=== PATIENT | female | born 1990 | race Hispanic/Latino ===

== ENCOUNTER 2017-05-13 04:09 | Emergency (ER) | payer OTHER ==
[~2017-05-13] VITALS: Ht 167.6 cm; Wt 77.1 kg
[~2017-05-13 04:09] MED LIST: LEVAQUIN500 MG PO
[2017-05-13] MEDS ORDERED: ONDANSETRON HCL INJ 2 MG/ML VIAL IV STA (04:26)
[2017-05-13] MEDS ORDERED: PANTOPRAZOLE 40 MG 10ML VIAL IV STA (04:26)
[2017-05-13] MEDS ORDERED: SODIUM CHLORIDE 0.9% 1000ML 1,000 ML IV ONE (04:30)
[2017-05-13] MEDS ORDERED: DICYCLOMINE HCL 20 MG/2 ML VIAL IM ONE (04:30)
[2017-05-13 04:42] LABS: BASOPHILS % 0.4 % (0.0-1.0); EOSINOPHILS # (AUTO) 0.2 (0.0-0.4); HEMATOCRIT 38.8 % (34.2-44.1); HEMOGLOBIN 13.1 g/dL (12.0-16.0); LYMPHOCYTES # (AUTO) 2.6 (1.0-3.2); LYMPHOCYTES % 26.2 % (18.0-39.1); MEAN CORPUSCULAR HEMOGLOBIN 27.2 pg (28-32); MEAN CORPUSCULAR HGB CONC 33.8 g/dL (31-35); MEAN CORPUSCULAR VOLUME 80.7 fL (81-99); MONOCYTES # (AUTO) 0.5 (0.2-0.8); NEUTROPHILS # (AUTO) 6.7 (2.1-6.9); NEUTROPHILS % 66.2 % (38.7-80.0); PLATELET COUNT 343 x10e3/uL (140-360); RED BLOOD COUNT 4.81 x10e6/uL (3.6-5.1); RED CELL DISTRIBUTION WIDTH 12.9 % (11.7-14.4)
[2017-05-13 05:02] LABS: ALANINE AMINOTRANSFERASE 28 IU/L (0-55); ALBUMIN 4.1 g/dL (3.5-5.0); ALBUMIN/GLOBULIN RATIO 1.1 (0.8-2.0); ALKALINE PHOSPHATASE 94 IU/L (40-150); AMYLASE 44 U/L (25-125); ANION GAP 13.8 mmol/L (8-16); BLOOD UREA NITROGEN 14 mg/dL (7-26); BUN/CREATININE RATIO 18 (6-25); CALCIUM 9.3 mg/dL (8.4-10.2); CARBON DIOXIDE 25 mmol/L (22-29); CHLORIDE 106 mmol/L (98-107); CREATININE, SERUM 0.76 mg/dL (0.57-1.11); EST GLOMERULAR FILTRATION RATE > 60 ML/MIN (60-); GLUCOSE 114 mg/dL (74-118); LIPASE 25 U/L (8-78); POTASSIUM 3.8 mmol/L (3.5-5.1); SODIUM 141 mmol/L (136-145)
--- NOTE | 2017-05-13 05:30 | Diagnostic Imaging Report ---
CHEST SINGLE (PORTABLE), 05/13/2017 4:26 AM Technique: CHEST SINGLE (PORTABLE) Comparison: 04/25/2017. Clinical history: Shortness of breath Findings: Unremarkable appearance of the heart, mediastinum, lungs and pleural spaces. Impression: 1. Lines/Tubes: None 2. No acute abnormality. Signed by: Dr Colette Christian MD on 05/13/2017 5:26 AM
--- NOTE | 2017-05-13 06:39 | Diagnostic Imaging Report ---
EXAM: US GALLBLADDER DATE: 05/13/2017 12:00 AM INDICATION: Right upper quadrant pain, COMPARISON: None TECHNIQUE: Transverse and longitudinal jimenez scale and color doppler sonographic images of the upper abdomen were obtained. FINDINGS: LIVER 16.3 cm in the right midclavicular line. Slightly increased echogenicity, normal contour, no masses. GALLBLADDER Multiple mobile gallstones with gallbladder wall measuring 0.4 cm. No pericholecystic fluid. Negative sonographic Elena's sign. BILE DUCTS No intra nor extra-hepatic biliary dilation. Common bile duct measures 0.4 cm PANCREAS: Not well seen due to bowel gas. RIGHT KIDNEY: 10.1 cm Echogenicity: Normal Collecting System: No hydronephrosis Stones: None Cyst/Mass: None VESSELS: Aorta: Visualized portions are within normal size limits Inferior Vena Cava: Visualized portions are normal Main Portal Vein: 0.9 cm, normal size with hepatopetal flow. FREE FLUID: None IMPRESSION: 1. Cholelithiasis with mild gallbladder wall thickening, but no pericholecystic fluid or Elena's sign. Findings are technically indeterminate but can be seen with early acute cholecystitis in the proper clinical context. Consider HIDA for confirmation. 2. Possible hepatic steatosis. Signed by: Dr Colette Christian MD on 05/13/2017 6:36 AM
[2017-05-13] MEDS ORDERED: MORPHINE SULFATE 2 MG/ML SYR IV STA (06:50)
[2017-05-13 06:52] LABS: BILIRUBIN,URINE NEGATIVE (NEGATIVE); KETONES,URINE NEGATIVE (NEGATIVE); LEUKOCYTE ESTERASE ,URINE NEGATIVE (NEGATIVE); NITRITE,URINE NEGATIVE (NEGATIVE); PROTEIN,URINE DIPSTICK NEGATIVE (NEGATIVE); URINE UROBILINOGEN 0.2 mg/dL (0.2 - 1)
[2017-05-13 06:53] LABS: CLARITY,URINE CLEAR (CLEAR); COLOR,URINE YELLOW (YELLOW)
[2017-05-13 07:08] LABS: BACTERIA,URINE RARE /HPF; EPITHELIAL CELLS,URINE FEW /LPF; RBC,URINE 0-5 /HPF (0-5); WBC,URINE (MAN) 0-5 /HPF (0-5)
== END 2017-05-13 08:15 | disposition home or self-care (01) ==
LOC: ER 04:09
DX: R10.11 Right upper quadrant pain (principal); R11.0 Nausea; K80.70 Calculus of gallbladder and bile duct without cholecystitis without obstruction
CPT/HCPCS: 36415; 71010; 76705; 80053; 81001; 82150; 83690; 84702; 85025; 96360; 96374; 96375; 96376; 99284; J0500; J2270; J2405; J7030

== ENCOUNTER 2017-05-18 12:27 | Observation (INO) | payer OTHER ==
[~2017-05-18] VITALS: Ht 167.6 cm; Wt 77.1 kg
[2017-05-18] MEDS ORDERED: PANTOPRAZOLE SO40 MG PO (13:10)
[2017-05-18] MEDS ORDERED: BYSTOLIC PO (13:10)
[2017-05-18] MEDS ORDERED: DICYCLOMINE HCL20 MG PO (13:11)
[2017-05-18] MEDS ORDERED: ULTRAM 50MG50 MG PO (13:11)
[2017-05-18] MEDS ORDERED: ZOFRAN4 MG PO (13:12)
[2017-05-18] MEDS ORDERED: BUPIVACAINE 0.25%/EPI 30ML SDV INJ ONE (13:45)
[2017-05-18] MEDS ORDERED: MIDAZOLAM HCL 2 MG/2 ML VIAL ONE (14:06)
[2017-05-18] MEDS ORDERED: FENTANYL CITRATE/PF 100MCG/2 ML INJ ONE (14:06)
[2017-05-18] MEDS ORDERED: DEXAMETHASONE SOD PHOS INJ 4 MG/ML VIAL ONE (14:21)
[2017-05-18] MEDS ORDERED: ROCURONIUM BROMIDE 10 MG/ML 5ML VIAL ONE (14:21)
[2017-05-18] MEDS ORDERED: SEVOFLURANE INHAL SOLN 250 ML PEN BTL ONE (14:21)
[2017-05-18] MEDS ORDERED: LIDOCAINE HCL 2% LOCAL INJ 5 ML SDV VIAL INJ ONE (14:21)
[2017-05-18] MEDS ORDERED: ONDANSETRON HCL INJ 2 MG/ML VIAL ONE (14:21)
[2017-05-18] MEDS ORDERED: LEVOFLOXACIN 500MG/D5W 100ML 100 ML IV ONE (16:43)
[2017-05-18] MEDS ORDERED: ONDANSETRON HCL INJ 2 MG/ML VIAL IV PRN (17:00)
[2017-05-18] MEDS ORDERED: ACETAMINOPHEN 1000 MG/100 ML IV PRN (17:00)
[2017-05-18] MEDS ORDERED: MORPHINE SULFATE 5 MG/ML VIAL ONE (17:11)
[2017-05-18 18:01] VITALS: BP 145/82
[2017-05-18 18:04] VITALS: BP 145/80
[2017-05-18] MEDS: PANTOPRAZOLE 40 MG 10ML VIAL IV SCH (18:12)
[2017-05-18] MEDS: METRONIDAZOLE 500MG/NS 100ML 100 ML IV SCH ×2 (18:12→23:26)
[2017-05-18] MEDS: HYDROMORPHONE 1MG/1ML INJ IV PRN (19:47)
[2017-05-18] MEDS: DEXTROSE 5%/LACTATED RINGERS 1,000 ML IV SCH (19:47)
[2017-05-18 20:00] VITALS: BP 117/64
[2017-05-18] MEDS: HYDROCODONE/APAP 7.5MG-325MG 1 EA TAB PO PRN (21:56)
[2017-05-19] VITALS: BP 100/55
[2017-05-19 04:00] VITALS: BP 94/51
[2017-05-19] MEDS: HYDROMORPHONE 1MG/1ML INJ IV PRN ×6 (04:29→20:57)
[2017-05-19] MEDS: DEXTROSE 5%/LACTATED RINGERS 1,000 ML IV SCH ×2 (05:12→09:46)
[2017-05-19] MEDS: METRONIDAZOLE 500MG/NS 100ML 100 ML IV SCH ×4 (05:18→23:47)
[2017-05-19 06:55] LABS: BASOPHILS % 0.3 % (0.0-1.0); EOSINOPHILS % 0.3 % (0.0-6.0); HEMATOCRIT 31.5 % (34.2-44.1); HEMOGLOBIN 10.4 g/dL (12.0-16.0); LYMPHOCYTES # (AUTO) 1.6 (1.0-3.2); LYMPHOCYTES % 13.9 % (18.0-39.1); MEAN CORPUSCULAR HEMOGLOBIN 27.4 pg (28-32); MEAN CORPUSCULAR VOLUME 82.9 fL (81-99); MONOCYTES # (AUTO) 0.8 (0.2-0.8); MONOCYTES % 6.6 % (4.4-11.3); NEUTROPHILS % 78.5 % (38.7-80.0); PLATELET COUNT 359 x10e3/uL (140-360); RED CELL DISTRIBUTION WIDTH 12.8 % (11.7-14.4)
[2017-05-19 07:17] LABS: ALANINE AMINOTRANSFERASE 137 IU/L (0-55); ALBUMIN 2.5 g/dL (3.5-5.0); ALBUMIN/GLOBULIN RATIO 0.7 (0.8-2.0); ALKALINE PHOSPHATASE 257 IU/L (40-150); BLOOD UREA NITROGEN 7 mg/dL (7-26); BUN/CREATININE RATIO 12 (6-25); CALCIUM 8.3 mg/dL (8.4-10.2); CARBON DIOXIDE 27 mmol/L (22-29); CHLORIDE 105 mmol/L (98-107); CREATININE, SERUM 0.57 mg/dL (0.57-1.11); EST GLOMERULAR FILTRATION RATE > 60 ML/MIN (60-); GLUCOSE 107 mg/dL (74-118); SODIUM 140 mmol/L (136-145)
[2017-05-19] MEDS: NEBIVOLOL 10 MG TAB PO SCH (08:01)
[2017-05-19 08:04] VITALS: BP 101/56
[2017-05-19] MEDS ORDERED: BYSTOLIC 2.5 MG PO SCH (09:00)
[2017-05-19 12:04] VITALS: BP 103/60
[2017-05-19 16:17] VITALS: BP 102/55
[2017-05-19] MEDS ORDERED: LEVOFLOXACIN 500MG/D5W 100ML 100 ML IV SCH (17:00)
[2017-05-19] MEDS: PANTOPRAZOLE 40 MG 10ML VIAL IV SCH (17:53)
[2017-05-19 20:00] VITALS: BP 107/60
[2017-05-19] MEDS: HYDROCODONE/APAP 7.5MG-325MG 1 EA TAB PO PRN (23:49)
[2017-05-20] VITALS: BP 99/55
[2017-05-20] MEDS: DEXTROSE 5%/LACTATED RINGERS 1,000 ML IV SCH ×2 (01:36→10:16)
[2017-05-20 04:00] VITALS: BP_SYST 101; BP_SYST 99; BP_DIAS 55; BP_DIAS 58
[2017-05-20] MEDS: METRONIDAZOLE 500MG/NS 100ML 100 ML IV SCH ×2 (05:04→12:40)
[2017-05-20] MEDS: HYDROMORPHONE 1MG/1ML INJ IV PRN (05:05)
[2017-05-20] MEDS: NEBIVOLOL 10 MG TAB PO SCH (09:40)
[2017-05-20] MEDS: HYDROCODONE/APAP 7.5MG-325MG 1 EA TAB PO PRN (10:16)
[2017-05-20 10:30] VITALS: BP 104/67
[2017-05-20 12:00] VITALS: BP 112/69
[2017-05-20 16:57] VITALS: BP 122/66
== END 2017-05-20 17:32 | disposition home or self-care (01) ==
LOC: OR 12:27 → MED/SURG 17:26
PROVIDERS: ADMIT Surgery; ATTEND Surgery
DX: K80.12 Calculus of gallbladder with acute and chronic cholecystitis without obstruction (principal)
CPT/HCPCS: 36415; 47562; 80053; 81025; 85025; 88304; C1766; G0378 ×3; J1100; J1170 ×3; J1956 ×2; J2001; J2250; J2270; J2405 ×2; J7120 ×3

== ENCOUNTER 2020-05-01 18:36 | Emergency (ER) | payer SELFPAY ==
[~2020-05-01] VITALS: Ht 167.6 cm; Wt 77.1 kg
[~2020-05-01 18:36] MED LIST changes: +BYSTOLIC PO; +DICYCLOMINE HCL20 MG PO; +PANTOPRAZOLE SO40 MG PO; +ULTRAM 50MG50 MG PO; +ZOFRAN4 MG PO
[2020-05-01] MEDS ORDERED: ONDANSETRON HCL 4 MG ORAL DISINTEGRATING TAB PO ONE (19:15)
--- NOTE | 2020-05-01 19:22 | Emergency Department Note ---
History of Present Illnes History of Present Illness Chief Complaint: Abdominal Complaints History of Present Illness This is a 30 year old female in from home with complaints of nausea, vomiting, abdominal pain and body aches that started today. pt;'s mother in er for same, pt reports multiple family members with same symptoms over the past week . Historian: Patient Arrival Mode: Car Onset (how long ago): hour(s) (12) Location: abd Quality: n/v body aches Radiation: Reports non-radiation Severity: mild Onset quality: sudden Duration (how long): hour(s) (12) Timing of current episode: intermittent Progression: waxing and waning Chronicity: new Context: Denies recent illness, Denies recent surgery Relieving factors: none Exacerbating factors: none Associated symptoms: Reports denies other symptoms Treatments prior to arrival: none Past Medical/Family History Physician Review I have reviewed the patient's past medical and family history. Any updates have been documented here. Past Medical History Recent Fever: No Clinical Suspicion of Infectio: No New/Unexplained Change in Ment: No Other Medical History: PIH Past Surgical History: Cholecysctectomy Social History Smoking Cessation: Never Smoker Counseling Performed: No Alcohol Use: Occasional Any Illegal Drug Use: No Other Last Tetanus: UTD Any Pre-Existing Lines (PICC,: No Review of Systems Review of Systems Constitutional: Reports no symptoms EENTM: Reports no symptoms Cardiovascular: Reports no symptoms Respiratory: Reports no symptoms Gastrointestinal: Reports as per HPI Genitourinary: Reports no symptoms Musculoskeletal: Reports no symptoms Integumentary: Reports no symptoms Neurological: Reports no symptoms Psychological: Reports no symptoms Endocrine: Reports no symptoms Hematological/Lymphatic: Reports no symptoms Physical Exam Related Data Allergies: Coded Allergies: amoxicillin (Verified Allergy, Intermediate, RASH, 11/08/16) cefaclor (Verified Allergy, Intermediate, RASH, 11/08/16) Triage Vital Signs Vital Signs Date Time Temp Pulse Resp B/P (MAP) Pulse Ox O2 Delivery O2 Flow Rate FiO2 05/01/20 19:00 99.1 103 16 135/84 100 Room Air Vital signs reviewed: Yes Physical Exam CONSTITUTIONAL Constitutional: Present well-developed, Present well-nourished HENT HENT: Present normocephalic, Present atraumatic, Present oropharynx clear/moist, Present nose normal HENT L/R: Present left ext ear normal, Present right ext ear normal EYES Eyes: Reports PERRL, Reports conjunctivae normal NECK Neck: Present ROM normal PULMONARY Pulmonary: Present effort normal, Present breath sounds normal CARDIOVASCULAR Cardiovascular: Present regular rhythm, Present heart sounds normal, Present capillary refill normal, Present tachycardia (101) GASTROINTESTINAL Abdominal: Present soft, Present nontender, Present bowel sounds normal GENITOURINARY Genitourinary: Present exam deferred SKIN Skin: Present warm, Present dry MUSCULOSKELETAL Musculoskeletal: Present ROM normal NEUROLOGICAL Neurological: Present alert, Present oriented x 3, Present no gross motor or sensory deficits PSYCHOLOGICAL Psychological: Present mood/affect normal, Present judgement normal Assessment & Plan Medical Decision Making MDM pt with n/v zofran 4 mg po ordered Assessment & Plan Final Impression: (1) Nausea & vomiting Depart Disposition: HOME, SELF-CARE Last Vital Signs Date Time Temp Pulse Resp B/P (MAP) Pulse Ox O2 Delivery O2 Flow Rate FiO2 05/01/20 19:00 99.1 103 16 135/84 100 Room Air Home Meds Reported Medications Ondansetron Hcl* (ZOFRAN*) 4 Mg Tablet, 4 MG PO PRN 05/18/17 Pantoprazole Sodium* (PROTONIX) 40 Mg Tablet.dr, 40 MG PO DAILY, TAB 05/18/17 [Bystolic] No Conflict Check, 2.5 MG PO DAILY 05/18/17 Medications in the ED Ondansetron HCl 4 mg ONCE ONCE PO Last administered on 05/01/20at 19:08; Admin Dose 4 MG; Start 05/01/20 at 19:15; Stop 05/01/20 at 19:16; Status DC LEE HUA MD May 01, 2020 19:22
[2020-05-01 20:16] VITALS: BP 124/72
--- OUTSIDE RECORDS SUMMARY | 2020-05-01 20:16 | XMS REPORT | Continuity of Care Document ---
Author Author [facility] t Organization [facility] Address [address] [place] [address] Phone Unavailable Care Team Providers Care Client Relationship Consultant Name Role Phone Nguyen Denia Attphys Unavailable Lane, Maryam Attphys Unavailable Antonio-Chew, Marii Attphys Unavailable Chica Cramer Attphys Adolfo Kang Attphys Bhakhrani, Tammi Attphys Airam Ernst Attphys Unavailable Bibiana Mendoza Attphys Parks, Amanda Attphys Unavailable Skinner, Mabel Attphys Unavailable Lad, Jenniffer Attphys Robbins, Myrissa Attphys Unavailable Kathe, Keanu Attphys Unavailable Cote, Meme Attphys Unavailable Moya, Zora Attphys Unavailable PRINTER, ER Attphys Unavailable Mary SEGUNDO Attphys Unavailable Bhakhrani, Tammi Unavailable Bibiana Mendoza Unavailable Lad, Jenniffer Unavailable Payers Payer Name Policy Type Policy Number Effective Date Expiration Date S ource Title X 11 [id number] 2019 00:00:00 2020 00:00 :00 [facility] Title X CI [id number] 2019 00:00:00 2020 00:00 :00 [facility] Problems Condition Name Condition Details Condition Category Status Onset Date Resolution Date Last Treatment Date Treating Clinician Comments Source Astigmatism - OU Condition Active 2020-02-07 00:00:00 2 11:24:20 Bhakhrani, [facility] Myopia - OU Condition Active 2020-02-07 00:00:00 910 11:24:20 [facility] Eye and vision exam, routine, abnormal findings Condit ion Active 2020-02-07 00:00:00 2020-02-07 11:24:20 [facility] Vision changes Condition Active 2020-01-11 00:00:00 14:13:02 [facility]endo[facility] Eczema Condition Active 2019-11-08 00:00:00 2019-11-08 14:36:08 [facility] Mendo[facility] Rosacea Condition Active 2019-11-08 00:00:00 2019-11-08 14:36:08 [facility] Adjustment disorder with mixed anxiety and depressed mood Condition Active 2019-10-11 00:00:00 2019-11-08 14:26:41 Jenniffer Sanchez [facility] Tobacco abuse Condition Active 2019-10-09 00:00:00 2019 15:53:49 [facility] Elevated blood pressure reading without diagnosis of hypertensio n Condition Active 2019-10-09 00:00:00 2019-10-09 15:53:49 [facility] Screening for std Condition Active 2019-10-09 00:00:00 2019-10-09 15:53:49 [facility] Mendo[facility] Numbness Condition Active 2019-10-09 00:00:00 2019-09-28 2 15:53:49 [facility]endo[facility] Anxiety Condition Active 2019-10-09 00:00:00 2019-10-09 15:53:49 [facility] BMI 30.0-30.9 Condition Active 2019-10-09 00:00:00 2019 15:53:49 [facility]endo[facility] Obesity Condition Active 2019-10-09 00:00:00 2019-10-09 15:53:49 [facility]osh[facility] Mendo[facility] Allergies, Adverse Reactions, Alerts Allergy Name Allergy Type Status Severity Reaction(s) Onset Date Inacti ve Date Treating Clinician Comments Source [place] Drug allergy (disorder) Active High Criticality 2019-09 00:00:00 [facility] AMOXICILLIN Drug allergy (disorder) Active High Criticality 2019-10-09 00:00:00 [facility] Social History Social Habit Start Date Stop Date Quantity Comments Source time of call 2020-04-11 10:42:49 2020-04-11 10:42:49 04/11/2020 10:42 AM [facility] drug use, illicit 2020-01-11 13:32:40 2020-01-11 13:32:40 Prior to Pr egnancy [facility] social history E&M 2020-01-11 13:32:40 2020-01-11 13:32:40 Partn ered. Pt with her partner for 8 years; Pt has no contact with son's bio dadNot homeless. [facility]. City: [place]. State: [place]. Pt lives with her mother, father and son age 10Not employed. Unemployed since 2019. Highest education level: high school graduate. 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 Sexual orientation: Heterosexual. Gender identity: Female. Gender of partner(s): Male. Sexually Active: Yes. [facility] sexual orientation 2020-01-11 13:32:40 2020-01-11 13:32:40 Heterosexu al [facility] assessment of health literacy ([employer] [facility] 2014 Standard s, 3C10) 2020-01-11 13:32:40 2020-01-11 13:32:40 Adequate [facility] passive cigarette smoke exposure 2020-01-11 13:32:40 2020-01-11 13:32 :40 No [facility] tobacco use (cigarettes, cigar, chew, pipe) 2020-01-11 13:32 :40 2020-01-11 13:32:40 Currently [facility] is there any chance that you could be ? 2020-01-11 1 3:32:40 2020-01-11 13:32:40 No [facility] alcohol use 2020-01-11 13:32:40 2020-01-11 13:32:40 Never [facility] social history reviewed E&M 2020-01-11 13:32:40 2020-01-11 13:32 :40 reviewed today [facility] if the patient is using/has used a vapin g item, Current, Former, Never Used, Not asked 2020-01-11 13:32:40 2020-01-11 13:32:40 No [facility] Suicide Addendum Question 12, plans for next 24-48 hours 13:33:26 2019-10-11 13:33:26 Looking for work online [facility] Suicide Addendum Question 11, unusual risks 2019-10-11 13:33 :26 2019-10-11 13:33:26 No [facility] Suicide Addendum Question 10, use of alcohol or non-pr escription drugs 2019-10-11 13:33:26 2019-10-11 13:33:26 Yes [facility] Suicide Addendum Question 9, attempted suicide before 10-10 13:33:26 2019-10-11 13:33:26 Yes [facility] Suicide Addendum Question 7, imagine you would be rescued 16-10-13 13:33:26 2019-10-11 13:33:26 Yes [facility] Suicide Addendum Question 6, intend to act 2019-10-11 13:33: 26 2019-10-11 13:33:26 Yes [facility] Suicide Addendum Question 5, means and availability 13:33:26 2019-10-11 13:33:26 Yes [facility] Suicide Addendum Question 4, plan for suicide 2019-10-11 13: 33:26 2019-10-11 13:33:26 Yes [facility] Suicide Addendum Question 3, try to resolve or see oth er solution 2019-10-11 13:33:26 2019-10-11 13:33:26 Yes [facility] Suicide Addendum Question 2, feeling hopeless 2019-10-11 13: 33:26 2019-10-11 13:33:26 Yes [facility] Suicide Addendum Question 8, people who care 2019-10-11 13:3 3:26 2019-10-11 13:33:26 Yes [facility] Suicide Addendum Question 1, thoughts of harming yourself 20 16-10-13 13:33:26 2019-10-11 13:33:26 Yes [facility] smoking, readiness to change 2019-10-11 13:33:26 2019-10-11 13:3 3:26 Pre-Contemplation [facility] cigar use 2019-10-11 13:33:26 2019-10-11 13:33:26 No [facility] cigarette use 2019-10-11 13:33:26 2019-10-11 13:33:26 Yes [facility] cigarettes, number smoked per day 2019-10-11 13:33:26 2019-10-11 13:3 3:26 6-7 [facility] Occupation #1 2019-10-11 13:33:26 2019-10-11 13:33:26 Unemployed [facility] family support 2019-10-11 13:33:26 2019-10-11 13:33:26 Pt with her partner for 8 years; Pt has no contact with son's bio dad [facility] [employer] [facility]/family situation, assessment 2019-10-11 13:33:26 2019-10-11 13:33:26 Pt lives with her mother, father and son age 10 [facility] patient considered to be homeless 2019-10-11 13:33:26 2019-10-11 13:3 3:26 No [facility] sex at 2019-10-09 15:07:02 2019-10-09 15:07:02 Female [facility] Smoking Status Start Date Stop Date Source Smokes tobacco daily (finding) 2020-01-11 13:32:40 [facility] Medications Ordered Medication Name Filled Medication Name Start Date Stop Da te Current Medication? Ordering Clinician Indication Dosage Frequency Signature (SIG) Comments Components Source BENZAMYCIN (BENZOYL PEROXIDE-ERYTHROMYCIN) 5-3 % GEL 2 00:00:00 Yes Roshni Mendoza apply to face nightly at bed time [facility] FLONASE ALLERGY RELIEF (FLUTICASONE PROPIONATE) 50 MCG/ACT S PENITENTIARY 2020-01-11 00:00:00 Yes Roshni Mendoza 2 sprays each no stril every day [facility] ZOLOFT (SERTRALINE HCL) 50 MG TABS 2019-11-08 00:00:00 Yes Roshni Mendoza 1 by mouth nightly at bedtime [facility] (CLINDAMYCIN PHOSPHATE) 1 % LOTN 2019-11-08 00:00:00 01-10 00:00:00 No Roshni Mendoza apply twice a day to affected area [facility] (TRAZODONE HCL) 50 MG TABS 2019-11-08 00:00:00 2020-01-11 00:00:00 No Roshni Mendoza 1 by mouth nightly at bedtime [facility] (FLUOXETINE HCL) 20 MG CAPS 2019-10-09 00:00:00 2019-11-08 00:00 :00 No 1{Capsule} 1xD 1 By Mouth once a day [facility] Vital Signs Vital Name Observation Time Observation Value Comments Source weight E&M 2020-01-11 13:32:40 200 [lb_av] [facility] weight in kilograms E&M 2020-01-11 13:32:40 90.91 kg [facility] height in centimeters E&M 2020-01-11 13:32:40 167.64 cm [facility] height in centimeters E&M 2019-11-08 14:00:57 167.64 cm [facility] blood pressure, diastolic 2019-10-09 15:07:02 82 mm[Hg] [facility] blood pressure, systolic 2019-10-09 15:07:02 120 mm[Hg] [facility] temperature E&M 2019-10-09 15:07:02 98.5 [degF] [facility] pulse rate 2019-10-09 15:07:02 67 /min [facility] oxygen saturation, oximetry 2019-10-09 15:07:02 98 /min [facility] weight E&M 2019-10-09 15:07:02 189.38 [lb_av] [facility] weight in kilograms E&M 2019-10-09 15:07:02 86.08 kg [facility] height in centimeters E&M 2019-10-09 15:07:02 167.64 cm [facility] temperature site 2019-10-09 15:07:02 oral [facility] Procedures Procedure Date / Time Performed Performing Clinician [facility] e Dispensing Visit (Non-Billable) 2020-03-12 13:55:12 Zenaida Cramer [facility] Frames, purchases deluxe 2020-02-08 12:35:31 Chica Cramer [facility] Spherocyl, SV, plano to +/- 4.00d sphere, 0.12 to 2.[address], per lens 2020-02-08 12:35:31 Chica Cramer [facility] Routine ophthalmological examination including refract ion; new patient 2020-02-07 11:22:19 Tammi Ferreira [facility] Diagnostic evaluation (no medical) - [id number] 2019-10-12 12:08:44 L Jenniffer banks [facility] Encounters Start Date/Time End Date/Time Encounter Type Admission Type Attendi [facility] Care Department Encounter ID Source 2020-04-11 00:00:00 2020-04-11 00:00:00 Office Visit W Denia irving Roxana Diego-Molina, Dunia [facility] Encounter/[id number] [facility] 2020-04-09 00:00:00 2020-04-09 00:00:00 Office Visit Denia Fields Roxana Diego-Molina, Dunia [facility] Encounter/[id number] [facility] 2020-03-12 00:00:00 2020-03-12 00:00:00 Office Visit Zenaida Cramer [facility] Encounter/[id number] [facility] 2020-02-28 00:00:00 2020-02-28 00:00:00 Office Visit Adolfo Christian [facility] Encounter/[id number] [facility] 2020-02-21 00:00:00 2020-02-21 00:00:00 Office Visit Brice Nguyen [facility] Encounter/[id number] [facility] 2020-02-07 00:00:00 2020-02-07 00:00:00 Office Visit Tammi Ferreira [facility] Encounter/[id number] [facility] 2020-02-07 00:00:00 2020-02-07 00:00:00 Office Visit Tammi Ferreira [id number] [facility] 2020-02-07 00:00:00 2020-02-07 00:00:00 Office Visit Tammi Ferreira [facility] LC Encounter/[id number] [facility] 2020-02-07 00:00:00 2020-02-07 00:00:00 Office Visit Thomas godoyColin dickeya ShoaibChica [id number] [facility] 00:00:00 2020-02-07 00:00:00 Office Visit Zenaida Cramer [facility] Encounter/[id number] [facility] 2020-01-31 00:00:00 2020-01-31 00:00:00 Office Visit Lizy Ernst [facility] Encounter/[id number] [facility] 2020-01-11 00:00:00 2020-01-11 00:00:00 Office Visit Roshni Sears Deborah McIntyre, Shakira Guzman, Jessica [facility] LC Encounter/[id number] Leg y [facility] 2020-01-07 00:00:00 2020-01-07 00:00:00 Office Visit Jenniffer Sanchez [facility] Encounter/[id number] [facility] 2019-11-19 00:00:00 2019-11-19 00:00:00 Office Visit Jenniffer Sanchez [id number] [facility] 2019-11-08 00:00:00 2019-11-08 00:00:00 Office Visit Roshni Moss [id number] [facility] 2019-11-08 00:00:00 2019-11-08 00:00:00 Office Visit Roshni Sears Jessica [facility] Encounter/[id number] [facility] 2019-10-26 00:00:00 2019-10-26 00:00:00 Office Visit LauraJenniffer [facility] Encounter/[id number] [facility] 2019-10-12 00:00:00 2019-10-12 00:00:00 Office Visit Rosendo Shelby elizabeth [facility] Encounter/[id number] [facility] 2019-10-12 00:00:00 2019-10-12 00:00:00 Office Visit Roshni Moss [facility] Encounter/[id number] [facility] 2019-10-11 00:00:00 2019-10-11 00:00:00 Office Visit Laura Jenniffer [facility] Encounter/[id number] [facility] 2019-10-10 00:00:00 2019-10-10 00:00:00 Office Visit W Roshni luevano Myrissa [facility] Encounter/[id number] Count includes the [facility] 2019-10-09 00:00:00 2019-10-09 00:00:00 Office Visit Roshni Moss [facility] Encounter/[id number] [facility] 2019-10-09 00:00:00 2019-10-09 00:00:00 Office Visit W Roshni luevano Carlis Cuellar, Mabel Alonso [facility] Encounter/[id number] [facility] 2019-10-08 00:00:00 2019-10-08 00:00:00 Office Visit Opal Moay [facility] Encounter/[id number] [facility] Results Test Description Test Time Test Comments Results Result Comments Source hepatitis B surface antigen 2019-10-10 09:21:00 Test Item hepatitis B surface antigen (test code = 79) Negative Negative [facility] Hospitalthyroid stimulating hormone, [id number] 09:21:00* Test Item Value Reference Range Interpretation Comments thyroid stimulating hormone, serum (test code = 3016-3) 1.10 0 u[iU]/mL 0.450-4.500 [facility]hepatitis C antibody, [id number] 09:21:00* Test Item Value Reference Range Interpretation Comments hepatitis C antibody, serum (test code = 5199-5) <0.1 0.0-0 .9 [facility]HIV-CMIA (Chemiluminescent Microparticle Immuno Assay) 2019-10-10 09:21:00* Test Item Value Reference Range Interpretation Comments HIV-CMIA (Chemiluminescent Microparticle Immuno Assay) (test code = 414588) Non Reactive Non Reactive [facility] Hospitalrapid plasma reagin antibody, [id number] 09:21:00* Test Item Value Reference Range Interpretation Comments rapid plasma reagin antibody, serum (test code = 5291-0) Non Reactive Non Reactive [facility] Hospitalfolate, [id number] 09:21:00* Test Item Value Reference Range Interpretation Comments folate, serum (test code = 2284-8) 6.9 ng/mL >3.0 [facility] HospitalB-12, [id number] 09:21:00* Test Item Value Reference Range Interpretation Comments B-12, serum (test code = 2132-9) 656 pg/mL 232-1245 [facility] Hospitalalanine aminotransferase (SGPT), [id number] 09:21:00 * Test Item Value Reference Range Interpretation Comments alanine aminotransferase (SGPT), serum (test code = 1742-6) 14 1/L 0-32 [facility] Hospitalaspartate aminotransferase (SGOT), [id number] 09:21:00* Test Item Value Reference Range Interpretation Comments aspartate aminotransferase (SGOT), serum (test code = 1920-8) 16 1/ L 0-40 [facility] Hospitalalkaline phosphatase, [id number] 09:21:00* Test Item Value Reference Range Interpretation Comments alkaline phosphatase, serum (test code = 1783-0) 86 1/L 39-11 7 [facility]bilirubin, serum, [id number] 09:21:00* Test Item Value Reference Range Interpretation Comments bilirubin, serum, total (test code = 1975-2) <0.2 mg/dL 0.0-1.2 [facility]albumin/globulin ratio, [id number] 09:21:00* Test Item Value Reference Range Interpretation Comments albumin/globulin ratio, serum (test code = 1759-0) 1.8 1.2 -2.2 [facility], [id number] 09:21:00* Test Item Value Reference Range Interpretation Comments globulin, serum (test code = 2336-6) 2.5 1.5-4.5 [facility]in, [id number] 09:21:00* Test Item Value Reference Range Interpretation Comments albumin, serum (test code = 1751-7) 4.4 g/dL 3.9-5.0 [facility], total, [id number] 09:21:00* Test Item Value Reference Range Interpretation Comments protein, total, serum (test code = 2885-2) 6.9 g/dL 6.0-8.5 [facility]calcium, [id number] 09:21:00* Test Item Value Reference Range Interpretation Comments calcium, serum (test code = 2000-8) 9.7 mg/dL 8.7-10.2 [facility]carbon dioxide, venous [id number] 09:21:00* Test Item Value Reference Range Interpretation Comments carbon dioxide, venous blood (test code = 2027-1) 24 mmol/L 20-2 9 [facility]ide, [id number] 09:21:00* Test Item Value Reference Range Interpretation Comments chloride, serum (test code = 2075-0) 103 mmol/L 96-106 [facility]potassium, [id number] 09:21:00* Test Item Value Reference Range Interpretation Comments potassium, serum (test code = 2823-3) 5.1 mmol/L 3.5-5.2 [facility]sodium, [id number] 09:21:00* Test Item Value Reference Range Interpretation Comments sodium, serum (test code = 2951-2) 142 mmol/L 134-144 [facility] Healthurea nitrogen/creatinine ratio, [id number] 09:21:00 * Test Item Value Reference Range Interpretation Comments urea nitrogen/creatinine ratio, serum (test code = 3097-3) 17 9-23 [facility] HealtheGFR if [id number] 09:21:00* Test Item Value Reference Range Interpretation Comments eGFR if (test code = 69441-3) 139 mL/min/((173/100 ).m2) >59 [facility] HospitalEstimated Glomerular Filtration Rate (calc)2019-10-10 09:21:00* Test Item Value Reference Range Interpretation Comments Estimated Glomerular Filtration Rate (calc) (test code = 78137-0) 121 mL/min/((173/100).m2) >59 [facility]creatinine, [id number] 09:21:00* Test Item Value Reference Range Interpretation Comments creatinine, serum (test code = 2160-0) 0.64 mg/dL 0.57-1.00 [facility] Hospitalurea nitrogen, [id number] 09:21:00* Test Item Value Reference Range Interpretation Comments urea nitrogen, blood (test code = 3094-0) 11 mg/dL 6-20 [facility]blood glucose, [id number] 09:21:00* Test Item Value Reference Range Interpretation Comments blood glucose, random (test code = 2339-0) 96 mg/dL 65-99 [facility] Hospitalimmature granulocytes, percentage of total cells, blood 2019-10-10 09:21:00* Test Item Value Reference Range Interpretation Comments immature granulocytes, percentage of total cells, bloo d (test code = 67585-5) 0 % [facility] Hospitalbasophil count, [id number] 09:21:00* Test Item Value Reference Range Interpretation Comments basophil count, absolute (test code = 51160-1) 0.0 x10E3/uL 0.0-0.2 [facility] HospitalEosinophil Absolute [id number] 09:21:00* Test Item Value Reference Range Interpretation Comments Eosinophil Absolute Count (test code = 49109-2) 0.3 X10E3/UL 0.0-0. 4 [facility] Hospitalmonocyte count, blood, [id number] 09:21:00* Test Item Value Reference Range Interpretation Comments monocyte count, blood, automated (test code = 742-7) 0.5 X10E3/UL 0 .1-0.9 [facility] Hospitallymphocyte count, blood, [id number] 09:21:00* Test Item Value Reference Range Interpretation Comments lymphocyte count, blood, automated (test code = 731-0) 2.7 X10E3/UL 0.7-3.1 [facility] HospitalAbsolute [id number] 09:21:00* Test Item Value Reference Range Interpretation Comments Absolute Neutrophils (test code = 92418-3) 5.6 X10E3/UL 1.4-7.0 [facility]basophils as percent of blood [id number] 09:21:00* Test Item Value Reference Range Interpretation Comments basophils as percent of blood leukocytes (test code = 707-0) 0 % [facility] Hospitaleosinophils as percent of blood [id number] 09:21:00* Test Item Value Reference Range Interpretation Comments eosinophils as percent of blood leukocytes (test code = 713-8) 3 % [facility] Hospitalmonocytes as percent of blood [id number] 09:21:00* Test Item Value Reference Range Interpretation Comments monocytes as percent of blood leukocytes (test code = 5905-5) 5 % [facility] Hospitallymphocytes as percent of blood [id number] 09:21:00* Test Item Value Reference Range Interpretation Comments lymphocytes as percent of blood leukocytes (test code = 736-9) 29 % [facility] Hospitalneutrophils as percent of blood [id number] 09:21:00* Test Item Value Reference Range Interpretation Comments neutrophils as percent of blood leukocytes (test code = 770-8) 63 % [facility] Hospitalplatelet [id number] 09:21:00* Test Item Value Reference Range Interpretation Comments platelet count (test code = 777-3) 222 X10E3/UL 150-450 [facility] Hospitalred blood cell distribution [id number] 09:21:00* Test Item Value Reference Range Interpretation Comments red blood cell distribution width (test code = 788-0) 13.9 % 11.7-15.4 [facility] corpuscular hemoglobin concentration, [id number] 09:21:00* Test Item Value Reference Range Interpretation Comments mean corpuscular hemoglobin concentration, RBC (test code = 786-4) 32.2 G/DL 31.5-35.7 [facility] hemoglobin, [id number] 09:21:00* Test Item Value Reference Range Interpretation Comments mean corpuscular hemoglobin, RBC (test code = 785-6) 27.2 pg 2 6.6-33.0 [facility] Hospitalmean corpuscular volume, [id number] 09:21:00* Test Item Value Reference Range Interpretation Comments mean corpuscular volume, RBC (test code = 787-2) 85 fL 79-97 [facility] Hospitalhematocrit, [id number] 09:21:00* Test Item Value Reference Range Interpretation Comments hematocrit, blood (test code = 4544-3) 40.7 % 34.0-46.6 [facility] Hospitalhemoglobin, [id number] 09:21:00* Test Item Value Reference Range Interpretation Comments hemoglobin, blood (test code = 718-7) 13.1 g/dL 11.1-15.9 [facility] Hospitalerythrocyte (RBC) [id number] 09:21:00* Test Item Value Reference Range Interpretation Comments erythrocyte (RBC) count (test code = 789-8) 4.81 X10E6/UL 3.77-5.28 [facility] Hospitalleukocyte count, [id number] 09:21:00* Test Item Value Reference Range Interpretation Comments leukocyte count, blood (test code = 6690-2) 9.1 X10E3/UL 3.4-10.8 [facility] SINGLE (PORTABLE) [place] [address] Patient Name: ERROL ALBERTO MR #: [id number] : 1990 Age/Sex: 27/F Req #: [id number] Adm Physician: Ordered by: LEE HUA MD Report #: [id number] Location: Room/Bed: Procedure: [id number] DX/CHEST SINGLE (PORTABLE) Exam Date: 05/13/17 Exam Time: [address] ATUS: Signed CHEST SINGLE (PORTABLE), 05/13/2017 4:26 AM Technique: CHES T SINGLE (PORTABLE) Comparison: 04/25/2017. Clinical history: Shortness of b reath Findings: Unremarkable appearance of the heart, mediastinum, lungs and pleural spaces. Impression: 1. Lines/Tubes: None 2. No acute abnorm ality. Signed by: Dr Tamera Yarbrough MD on 05/13/2017 5:26 AM Dictate d By: TAMERA YARBROUGH MD 5 COPY TO: ZAK HUA MD US GALLBLADDER [place] [address] Patient Name: ERROL ALBERTO MR #: [id number] : 1990 Age/Sex: 27/F Req #: [id number] Adm Physician: Ordered by: LEE HUA MD Report #: [id number] Location: ER Room/Bed: Procedure: [id number] US/US GALLBLADDER Exam Da te: 05/13/17 Exam Time: 550 REPORT STATUS: Sig kevin EXAM: US GALLBLADDER DATE: 05/13/2017 12:00 AM INDICATION: Right upper quadrant pain, COMPARISON: None TECHNIQUE: Transverse and longitu dinal jimenez scale and color doppler sonographic images of the upper abdomen wer e obtained. FINDINGS: LIVER 16.3 cm in the right midclavicular li ne. Slightly increased echogenicity, normal contour, no masses. GALLBLADD ER Multiple mobile gallstones with gallbladder wall measuring 0.4 cm. No per icholecystic fluid. Negative sonographic Elena's sign. BILE DUCTS No i ntra nor extra-hepatic biliary dilation. Common bile duct measures 0.4 cm PANCREAS: Not well seen due to bowel gas. RIGHT KIDNEY: 10.1 cm [place]: Normal Collecting System: No hydronephrosis Stones: None Cyst/Mass : None VESSELS: Aorta: Visualized portions are within normal size limits Inferior Vena Cava: Visualized portions are normal Main Portal Vein: 0.9 cm, normal size with hepatopetal flow. FREE FLUID: None IMPRESSION: 1. Cholelithiasis with mild gallbladder wall thickening, but no pericholecystic fluid or Elena's sign. Findings are technically indeterminate but can be seen with early acute cholecystitis in the proper clinical context. Consider HIDA for confirmation. 2. Possible hepatic steatosis. Signed by: Dr Tamera guzman MD on 05/13/2017 6:36 AM Dictated By: TAMERA YARBROUGH MD Electro nically Signed By: TAMERA YARBROUGH MD on 05/13/17635 Transcribed By: CIPRIANO on 05/13/17635 COPY TO: LEE HUA MD CHEST 2 VIEWS [place] [address] Patient Name: ERROL ALBERTO MR #: [id number] : Age/Sex: 27/F Req #: [id number] Adm Physician: Ordered by: MARIA LUZ SEGUNDO MD Report #: [id number] Location: ER Room/Bed: Procedure: [id number] DX/CHEST 2 VIEWS Exam Date: 04/25 Exam Time: 1155 REPORT STATUS: Signed MT OCEDURE: CHEST 2 VIEWS TECHNIQUE: PA and lateral chest INDICATION: Hea dache; hypertension; shortness of breath COMPARISON: None. FINDINGS: Lungs are clear and symmetrically inflated. No pleural effusions. Normal hea rt size, mediastinal contour and pulmonary vasculature. Intact skeleton. CONCLUSION: Normal. Dictated by: Giovanna Benitez M.D. on 04/25/2017 at 12:24 Electronically approved by: Giovanna Benitez M.D. on 04/25/2017 at 12:24 Dictated By: GIOVANNA BENITEZ MD El ectronically Signed By: GIOVANNA BENITEZ MD on 04/25/17 1224 Transcribed By: [facility] E on 04/25/17 1224 COPY TO: MARIA LUZ SEGUNDO MD CT BRAIN WO [place] [address] Patient Name: ERROL ALBERTO MR #: [id number] : Age/Sex: 27/F Req #: [id number] Adm Physician: Ordered by: MARIA LUZ SEGUNDO MD Report #: [id number] Location: ER Room/Bed: Procedure: [id number] CT/CT BRAIN WO Exam Date: 7 Exam Time: 1150 REPORT STATUS: Signed EXAM INATION: Head CT HISTORY: Worst headache of her life. COMPARISON: None. TECHNIQUE: Multidetector axial images were obtained without contrast from th e foramen magnum to the vertex . The images were reconstructed using brain and bone algorithms. Thin section brain images were reformatted into coronal and sagittal planes. Motion/streaking artifact limits the evaluation of the sku ll base and posterior cranial fossa. FINDINGS: Parenchyma: 1 . No abnormal densities. 2. No mass or hemorrhage. No CT evidence of acute t erritorial vascular insult. Extra-axial spaces:No abnormal dens ity. No extra-axial fluid collections Brain volume: Normal for age. Ventricles: No hydrocephalus or displacement. Arteries: No density suggestive of thrombus. Dural sinuses: No abnormal density. Extr a-axial spaces: No abnormal density. Foramen magnum: No mass, Chiari mal formation, or basilar invagination. Sella: No obvious mass. Par anasal/mastoid sinuses: Imaged portions unremarkable. Skull/Scalp: No ly tic or blastic lesions. No fractures. IMPRESSION: Normal head CT. Pa rticularly no intracranial hemorrhage. Signed by: Dr. Phu Cohn M.D. on 04/25/2017 12:33 PM Dictated By: PHU COHN MD 1233 Transcribed By: CIPRIANO on 04/25/17 1233 COPY TO: MARIA LUZ SEGUNDO MD
== END 2020-05-01 20:10 | disposition home or self-care (01) ==
LOC: ER 19:04
DX: R11.2 Nausea with vomiting, unspecified (principal); R10.9 Unspecified abdominal pain
CPT/HCPCS: 99283; Q0162